=== PATIENT | male | born 1975 | race Caucasian/White ===

== ENCOUNTER 2017-06-20 09:23 | Day surgery (SDC) | payer OTHER ==
[~2017-06-20] VITALS: Ht 182.9 cm; Wt 88.0 kg
[~2017-06-20 09:23] MED LIST: ASPIR-LOW81 MG PO; ASPIRIN325 MG PO; CRESTOR40 MG PO; Ecotrin PO; FLEXERIL5 MG PO; LIPITOR40 MG PO; LOPRESSOR25 MG PO; Lopressor PO; METOPROLOL SUCC50 MG PO; NORCO 5/3251 TABLET PO; Nitrostat,NitroQuick SL; PANTOPRAZOLE SO40 MG PO; PERCOCET 5/31 TABLET PO; PLAVIX75 MG PO; PRINIVIL20 MG PO; Plavix PO; TOPROL XL25 MG PO; ZESTRIL,PRINIVI20 MG PO; ZOCOR40 MG PO; ZOFRAN ODT4 MG PO; Zestril,Prinivil PO; Zocor PO
== END 2017-06-20 15:55 | disposition short-term general hospital (02) ==
LOC: CATH 09:23
DX: I25.118 Atherosclerotic heart disease of native coronary artery with other forms of angina pectoris (principal); T82.855A Stenosis of coronary artery stent, initial encounter; I10 Essential (primary) hypertension; E78.2 Mixed hyperlipidemia; I25.2 Old myocardial infarction; F17.210 Nicotine dependence, cigarettes, uncomplicated; Z95.5 Presence of coronary angioplasty implant and graft; Z79.82 Long term (current) use of aspirin
CPT/HCPCS: 80048; 85025; C1769; C1887; J1644; J2250; J3010